=== PATIENT | male | born 1990 | race African-American/Black ===

== ENCOUNTER 2024-08-13 10:17 | Inpatient (IN) | payer OTHER ==
[2024-08-13 11:00] VITALS: BMI 23.8
[2024-08-13] MEDS ORDERED: ONDANSETRON *ODT* 4 MG TABLET SL PRN (11:40)
[2024-08-13] MEDS ORDERED: BENZOCAINE/MENTHOL (CHLORASEPTIC ) LOZENGE MM PRN (11:40)
[2024-08-13] MEDS ORDERED: IBUPROFEN 400 MG TABLET (FP) PO PRN (11:40)
[2024-08-13] MEDS ORDERED: ACETAMINOPHEN 325 MG TABLET (FP) PO PRN (11:40)
[2024-08-13] MEDS ORDERED: MAGNESIUM HYDROX 2400MG/30ML ORAL SUSPENSION 30 ML CUP PO PRN (11:40)
[2024-08-13] MEDS ORDERED: LOPERAMIDE HCL 2 MG CAPSULE PO PRN (11:40)
[2024-08-13] MEDS ORDERED: NALOXONE (NARCAN) HCL 4 MG/0.1 ML SPRAY NS PRN (11:40)
[2024-08-13] MEDS ORDERED: POLYETHYLENE GLYCOL (HEALTHYLAX) 3350 17 GM PACKET PO PRN (11:40)
[2024-08-13] MEDS ORDERED: BISMUTH SUBSALICYLATE 262 MG/15 ML BTL PO PRN (11:40)
[2024-08-13] MEDS ORDERED: guaiFENesin 600 MG TABLET.ER (FP) PO PRN (11:40)
[2024-08-13] MEDS ORDERED: DICYCLOMINE HCL 10 MG CAPSULE PO PRN (11:40)
[2024-08-13] MEDS ORDERED: BENZONATATE 200 MG CAPSULE PO PRN (11:40)
[2024-08-13] MEDS ORDERED: diazePAM 5 MG TABLET ONE (12:57)
[2024-08-13] MEDS ORDERED: hydrOXYzine PAMOATE 25 MG CAPSULE (FP) PO ONE (12:57)
[2024-08-13] MEDS: hydrOXYzine PAMOATE 25 MG CAPSULE (FP) PO PRN (13:04)
[2024-08-13] MEDS: diazePAM 5 MG TABLET PO SCH (13:05)
[2024-08-13] MEDS: NALTREXONE HCL 50 MG TABLET PO SCH (14:02)
[2024-08-13] MEDS: LIDOCAINE 4% PATCH TP SCH (14:06)
[2024-08-13 14:39] LABS: HEMATOCRIT 42.8 % (35.4-49); HEMOGLOBIN 14.4 GM/dL (11.7-16.9); MCHC 33.7 g/dl (32.0-35.9); MEAN CELL VOLUME 98.1 fl (80-96); MEAN PLT VOLUME 7.9 fl (7.5-11.1); PLATELET COUNT 218 10^3/uL (134-434); RBC 4.36 M/mm3 (4.00-5.60); RDW 14.5 % (11.9-15.9); WHITE BLOOD COUNT 8.6 K/mm3 (4.0-10.0)
[2024-08-13 15:34] LABS: POTASSIUM 3.6 mmol/L (3.5-5.1)
[2024-08-13 15:37] LABS: CALCIUM 9.9 mg/dL (8.5-10.1)
[2024-08-13 15:38] LABS: ALBUMIN 4.6 g/dl (3.4-5.0); BLOOD UREA NITROGEN 5.3 mg/dL (7-18)
[2024-08-13 15:42] LABS: BILIRUBIN,TOTAL 0.8 mg/dL (0.2-1); TOT PROT 8.1 g/dl (6.4-8.2)
[2024-08-13] MEDS: IBUPROFEN 600 MG TABLET (FP) PO PRN (17:34)
[2024-08-13] MEDS: MELATONIN 5 MG TABLETS PO SCH (23:01)
[2024-08-13] MEDS: THIAMINE 100 MG TABLET PO SCH (23:01)
[2024-08-13] MEDS: LIDOCAINE PATCH REMOVAL MC SCH (23:01)
[2024-08-14] MEDS: MAG HYDROX/AL HYDROX/SIMETH 30 ML UNIT-DOSE CUP PO PRN (06:34)
[2024-08-14] MEDS: PRENATAL VITAMINS W/ FOLIC ACID TABLET (FP) PO SCH (09:37)
[2024-08-14 10:28] LABS: POTASSIUM 3.5 mmol/L (3.5-5.1)
[2024-08-14 10:33] LABS: CALCIUM 9.8 mg/dL (8.5-10.1)
[2024-08-14 10:35] LABS: BLOOD UREA NITROGEN 8.4 mg/dL (7-18)
[2024-08-14 10:36] LABS: ALBUMIN 3.9 g/dl (3.4-5.0); CREATININE 0.9 mg/dL (0.55-1.3)
[2024-08-14 10:38] LABS: BILIRUBIN,TOTAL 1.7 mg/dL (0.2-1)
[2024-08-14 10:44] LABS: HEMOGLOBIN 14.1 GM/dL (11.7-16.9); MCH 33.8 pg (25.7-33.7); MCHC 34.4 g/dl (32.0-35.9); MEAN CELL VOLUME 98.1 fl (80-96); MEAN PLT VOLUME 8.3 fl (7.5-11.1); PLATELET COUNT 193 10^3/uL (134-434); RBC 4.18 M/mm3 (4.00-5.60); RDW 14.5 % (11.9-15.9); WHITE BLOOD COUNT 4.9 K/mm3 (4.0-10.0)
[2024-08-14] MEDS: FLU VACCINE (FLULAVAL) PF 45 MCG/0.5 ML SYRINGE 2024-2025 IM ONE (11:07)
[2024-08-14] MEDS: SERTRALINE HCL 50 MG TABLET (FP) PO SCH (15:09)
[2024-08-14] MEDS: METHOCARBAMOL 500 MG TABLET PO PRN (19:35)
[2024-08-15] MEDS: diazePAM 5 MG TABLET PO SCH (06:00)
[2024-08-15] MEDS ORDERED: cloNIDine HCL 0.1 MG TABLET PO PRN (15:21)
[2024-08-16] MEDS: diazePAM 5 MG TABLET PO SCH (06:21)
[2024-08-16] MEDS: diazePAM 5 MG TABLET PO PRN (10:05)
[2024-08-16 20:21] VITALS: RESP 16
[2024-08-16] MEDS: SUVOREXANT 10 MG TABLET PO PRN (22:24)
[2024-08-17] MEDS: diazePAM 5 MG TABLET PO ONE (06:07)
[2024-08-17 09:06] VITALS: BP 111/67; PULSE 66; TEMP 97.9
[2024-08-17] MEDS: NALTREXONE MICROSPHERES (VIVITROL) 380 MG DISP.SYRIN IM ONE (09:37)
== END 2024-08-17 11:12 | disposition home or self-care (01) | DRG 897 ==
LOC: YASAS 10:17 → Y6N 12:34
PROVIDERS: ADMIT Allergy & Immunology; ATTEND Allergy & Immunology
PROC: HZ2ZZZZ Detoxification Services for Substance Abuse Treatment (ICD-10-PCS; principal; 2024-08-13)
DX: F10.230 Alcohol dependence with withdrawal, uncomplicated (principal); F19.282 Other psychoactive substance dependence with psychoactive substance-induced sleep disorder; F19.280 Other psychoactive substance dependence with psychoactive substance-induced anxiety disorder; C92.10 Chronic myeloid leukemia, BCR/ABL-positive, not having achieved remission; F12.20 Cannabis dependence, uncomplicated; F17.210 Nicotine dependence, cigarettes, uncomplicated; F41.9 Anxiety disorder, unspecified; I10 Essential (primary) hypertension; Z62.810 Personal history of physical and sexual abuse in childhood; Z91.410 Personal history of adult physical and sexual abuse; Z63.8 Other specified problems related to primary support group; Z63.0 Problems in relationship with spouse or partner
CPT/HCPCS: 36415; 80053; 80305; 80307; 85027; 86780; 90656; 93005; 93010; G0008; J2315